=== PATIENT | female | born 1935 | race Caucasian/White ===

== ENCOUNTER 2019-08-25 06:06 | Day surgery (SDC) | payer OTHER, BC ==
[2019-08-22 15:05] VITALS: BMI 29.2
[2019-08-25] MEDS ORDERED: EPINEPHrine 1:1,000 1 MG/1 ML - 30ML VIAL (INJECTION) ONE (07:13)
[2019-08-25] MEDS ORDERED: MIDAZOLAM HCL 2 MG/2 ML SINGLE DOSE VIAL ONE (07:22)
[2019-08-25] MEDS ORDERED: SUCCINYLCHOLINE CHLORIDE 200 MG/10 ML SYRINGE ONE (07:22)
[2019-08-25] MEDS ORDERED: ePHEDrine SULFATE 50 MG/1 ML AMPULE ONE (07:23)
[2019-08-25] MEDS ORDERED: PROPOFOL 20 ML ONE ×3 (07:23)
[2019-08-25] MEDS ORDERED: BUPIVACAINE HCL/PF 0.5% (5MG/ML) 10 ML VIAL ONE ×2 (07:34→09:52)
[2019-08-25] MEDS ORDERED: ceFAZolin SODIUM 1 GM VIAL ONE (08:05)
[2019-08-25] MEDS ORDERED: PHENYLEPHRINE HCL 10 MG/1 ML SINGLE DOSE VIAL ONE (08:15)
[2019-08-25] MEDS ORDERED: SODIUM CHLORIDE 0.9% P/F 10 ML VIAL IJ ONE (08:18)
[2019-08-25] MEDS ORDERED: ACETAMINOPHEN 325 MG TABLET (FP) PO PRN (08:34)
[2019-08-25] MEDS ORDERED: ONDANSETRON 4 MG/2 ML VIAL IVPUSH PRN (08:34)
[2019-08-25] MEDS ORDERED: oxyCODONE HCL 5 MG TABLET PO PRN (08:34)
[2019-08-25] MEDS ORDERED: ONDANSETRON 4 MG/2 ML VIAL ONE (09:45)
[2019-08-25] MEDS ORDERED: DEXAMETHASONE SOD PHOSPHATE 4 MG/1 ML VIAL ONE (09:45)
[2019-08-25] MEDS ORDERED: BUPIVACAINE HCL/PF 0.5% (5 MG/ML) 30 ML VIAL IJ ONE (09:56)
--- NOTE | 2019-08-25 10:12 | OP ---
Operative Note - Note: Operative Date: 08/25/19 Pre-Operative Diagnosis: Right hip bursitis Operation: Right hip burscectomy Post-Operative Diagnosis: Same as Pre-op Surgeon: Edgardo Mendez Paper Folder: Ana Rosa Reis Anesthesia: Spinal Operative Report Dictated: Yes
[2019-08-25 11:25] VITALS: PULSE 83; TEMP 97.5
[2019-08-25] MEDS ORDERED: ACETAMINOPHEN 325 MG TABLET (FP) ONE (11:58)
[2019-08-25 12:58] VITALS: BP 133/60
--- NOTE | 2019-08-25 13:04 | OP ---
DATE OF OPERATION: 08/25/2019 PREOPERATIVE DIAGNOSIS: Right hip bursitis, gluteus medius tendinopathy. POSTOPERATIVE DIAGNOSIS: Right hip bursitis, gluteus medius tendinopathy. PROCEDURE: Right hip arthroscopy with bursectomy, gluteus medius repair. SURGEON: Edgardo Mendez MD RN SUPPLEMENTAL: Ana Rosa Reis, physician assistant prosecuting attorney, whose skilled full assistance was necessary for the safe and timely performance of this procedure. Ms. Reis was able to provide limb positioning, retraction, assist in driving the camera, passing of instruments, and insertion of orthopaedic fixation hardware. ANESTHESIA: Spinal. POSTOPERATIVE CONDITION: Stable. COMPLICATIONS: None. IMPLANTS: [employer] Q-Fix anchor x1. INDICATIONS: This is a pleasant 83-year-old who had been treated by for quite some time for hip bursitis. She failed to improve to conservative measures. Treatment options were discussed including continued conservative versus operative care. I reviewed the procedure, which is done arthroscopically, which involves placing a small camera into the bursal area, debriding the bursal tissue, and repairing the gluteus is necessary. I reviewed surgical risks in detail including bleeding, infection, neurovascular injury, need for further surgery, postoperative pain and stiffness. We discussed medical risks such as heart attack, stroke, DVT, PE, and . I addressed the use of perioperative antibiotic and DVT prophylaxis. I reviewed the postoperative rehabilitation protocol. I addressed all of the patient's questions and concerns. She voiced understanding and elected to proceed. DESCRIPTION OF PROCEDURE: Patient was brought to the operating room where spinal anesthetic was administered. The patient was then placed onto the hip arthroscopy table; however, no traction was applied. The right lower extremity was placed into a position of slight internal rotation. The patient was now prepped and draped in the usual sterile fashion. A preoperative dose of antibiotics was given, and the usual time-out procedure was performed. At this point, a spinal needle was placed at the tip of the greater trochanter. A guidewire was then placed down spinal needle. A small incision was made about the guidewire, and trocar was passed over. The camera was now inserted into the bursal region. This was then repeated a 2nd time for a more anterior portal. The 1st one was a straight lateral portal. Utilizing a mechanical shaver, the bursa in this area was debrided. This was carried out down just past the vastus region up to where the gluteus medius attachment is. After thoroughly debriding the bursa and gaining visualization, the gluteus medius was inspected. The gluteus was found to be somewhat ragged with longitudinal tearing. A probe was passed and passed directly through the tendon down through its attachment site. A shaver was then passed down the middle of the tendon with minimal effort and then used to debride the bone. A bur was then used to create a bleeding bony surface to allow for healing. The Q-Fix anchor was now drilled through the middle of the gluteus attachment site. Utilizing a Firstpass as well as 70-degree suture passer, 2 horizontal mattress sutures were passed through the anterior and more posterior leaflets of the gluteus. The suture was then handtied securing the gluteus back down onto the equipment. The gluteus was now securely repaired. The excess fluid was withdrawn from the drain. The portals were sutured using 4-0 nylon. Sterile dressings were placed. The patient was injected with Marcaine about the portal sites. The patient was then transferred to recovery room in stable condition. Kelvin [id number]
== END 2019-08-25 12:30 | disposition home or self-care (01) ==
LOC: FASU 06:06
PROVIDERS: ATTEND Orthopaedic Surgery Sports Medicine
PROC: 0SB Lower Joints, Excision (ICD-10-PCS; 2019-08-25)
PROC: 0SQ94ZZ Repair Right Hip Joint, Percutaneous Endoscopic Approach (ICD-10-PCS; principal; 2019-08-25 08:25)
DX: M70.61 Trochanteric bursitis, right hip (principal); M76.01 Gluteal tendinitis, right hip
CPT/HCPCS: 94760